=== PATIENT | female | born 1945 | race Hispanic/Latino ===

== ENCOUNTER → 2023-12-18 10:44 | Outpatient (REF) | payer OTHER, SELFPAY | LOC: HWRCS 10:44 | PROVIDERS: ATTENDING PHYSICIAN Internal Medicine; FAMILY PHYSICIAN Family Medicine | DX: R01.1 Cardiac murmur, unspecified (principal) | CPT/HCPCS: 93306 ==

== ENCOUNTER 2024-03-14 09:05 | Day surgery (SDC) | payer OTHER, SELFPAY ==
[2024-03-14] VITALS (10 sets, daily range): BP systolic 94–125; BP diastolic 56–78; BMI 24.8
[2024-03-14 10:13] LABS: Glucose - Point of Care 160 mg/dl (70-99)
--- NOTE | 2024-03-14 12:34 | ITS.CL.IMPLP ---
[facility] - Implant Loop
Implant Loop
Procedure Report:
Date of Procedure: March 14, 2024.
Procedure: Insertable Loop Recorder Explant.
Indication: Loop at the end of service.
Performing physician: Rudy Lazo MD, [facility].
Explant: [employer]; [employer], Model# [id number]; Serial# [id number] (implanted 01/23/2022).
Technique: A time out was performed per protocol. The patient was prepped and draped in the usual fashion. Anesthesia was administered by the anesthesia staff. Local anesthetic was applied to the left prepectoral subcutaneous tissue. An incision
was made over the scar. Dissection was carried to the capsule. The capsule was entered. The old device was explanted. The pocket appeared normal. Hemostasis was excellent. The pocket was irrigated with saline. The incision was closed with 4-0
Monocryl suture. The skin was closed with steri-strips. There was no blood loss. There were no complications. No fluoroscopy was used.
Conclusion: Uncomplicated insertable loop explantation.
Recommendation: Routine incision care.
cc: Bijan Pace MD and Skyla Goins MD.
== END 2024-03-14 13:01 | disposition home or self-care (01) ==
LOC: CATH 09:05
PROVIDERS: ATTENDING PHYSICIAN Internal Medicine Cardiovascular Disease; FAMILY PHYSICIAN Family Medicine; OTHER PHYSICIAN Internal Medicine
DX: Z09 Encounter for follow-up examination after completed treatment for conditions other than malignant neoplasm (principal); R55 Syncope and collapse; E11.9 Type 2 diabetes mellitus without complications; Z87.891 Personal history of nicotine dependence; Z79.84 Long term (current) use of oral hypoglycemic drugs
CPT/HCPCS: 33286; 82962

== ENCOUNTER 2024-05-11 10:51 | Emergency (ER) | payer OTHER, SELFPAY ==
[2024-05-11 10:53] VITALS: BP 146/87
[2024-05-11 11:05] LABS: Glucose - Point of Care 299 mg/dl (70-99)
--- NOTE | 2024-05-11 11:46 | ED.GENMED ---
History of Present Illness
<Kathleen Hassan PA-C - Last Filed: 05/11/24 20:32>
General
Chief Complaint: Blood Pressure Problem
Source: patient
Exam Limitations: none
Time Seen by Provider: 05/11/24 11:22
Nursing documentation reviewed up to this point in time: agreed with
History of Present Illness
History of Present Illness:
Patient is a 78-year-old female with history of CHF, hyperlipidemia, type 2 diabetes, hypertension presenting to the emergency department with multiple complaints. Patient states that she has felt generally unwell over the past few days. She has
had high blood pressure readings at home as high as 180/113. She also notes elevated glucose levels. She is undergoing some medication changes as she recently came off of metformin and started a new insulin medication. Patient states this morning
she was driving to [employer], a store that she visits frequently, however was having difficulties navigating. She kept passing the location of the store. s
She also notes some dysuria and lower abdominal for which she has been treated for frequent UTIs. She is following with a urogynecologist and plan for procedure in the next few weeks for a 'low-lying bladder '. No fevers, nausea/vomiting
Patient denies any severe headache, double vision, ataxia, dysarthria. Patient denies any numbness/tingling in lower extremities or weakness.
Past History
<Kathleen Hassan PA-C - Last Filed: 05/11/24 20:32>
Past History
ED Past Medical History: GERD and Hypercholesterolemia
ED Past Surgical History: Gynecological (Hysterectomy with One Oophorectomy) and Orthopedic
Social History
Tobacco: Former smoker
Alcohol: None
Personal:
Living: with family
Review of Systems
<Kathleen Hassan PA-C - Last Filed: 05/11/24 20:32>
Review of Systems
Allergies reviewed?: Yes
All Other Systems: ROS reviewed and negative except as documented in HPI and ROS
Phy Exam
<Kathleen Hassan PA-C - Last Filed: 05/11/24 20:32>
Physical Exam
Physical Exam:
Vitals: Hypertensive, otherwise vital signs stable. Afebrile
General: Patient is well appearing, no acute distress. Nontoxic appearing
Skin: Warm and dry, no rashes or lesions
Head: Normocephalic, atraumatic
Eyes: Sclera nonicteric. Pupils equal round and reactive to light bilaterally. EOMs intact. Visual muller intact. No nystagmus.
Throat: Protecting airway
Neck: Normal ROM, no cervical spine tenderness, no meningismus
Cardiac: Regular rate and rhythm, no murmurs.
Pulm: Normal respiratory effort, no wheezes, rales, rhonchi heard on exam.
Abdomen: Abdomen soft no abdominal tenderness.
Extremities: No evidence of cyanosis or edema. Strength 5 out of 5 in upper and lower extremities. Sensation fully intact.
Neuro: AAOx3. CN II-XII intact. No focal neurologic deficits. No facial asymmetry. Fluid speech. Normal finger-nose.
Psychiatric: Normal affect.
Scores
<Kathleen Hassan PA-C - Last Filed: 05/11/24 20:32>
NIH Stroke Score
Level of Consciousness: 0 - Alert
LOC Questions: 0-Answers both correctly
LOC Commands: 0-Performs both correctly
Best Horizontal Gaze: 0-Normal
Visual Muller: 0=Normal, no visual loss
Facial Palsy: 0=Normal, symmetrical
Motor - Right Arm: 0=No drift 10 seconds
Motor - Left Arm: 0=No drift 10 seconds
Motor - Right Le-No drift 5 seconds
Motor - Left Le-No drift 5 seconds
Limb Ataxia: 0-Absent
Sensation: 0-Normal
Best Language: 0-No aphasia
Dysarthria: 0-Normal
Extinction and Inattention: 0-No abnormality
Total Score:: 0
Course
<Kathleen Hassan PA-C - Last Filed: 05/11/24 20:32>
Orders/Labs/Results
Orders:
Orders
05/11/24 10:56
EKG [Electrocardiogram (*1)] Urgent
Reason for Study: Chest Pain
EKG- Treatment ONCE
05/11/24 11:47
CT Head W/o Iv Contrast Urgent
Comment:
Reason For Exam: HTN, vision changes, AMS
05/11/24 12:02
Urinalysis Reflex To Culture Urgent
Date Specimen was Collected: 05/11/24
Time Specimen was Collected: 12:00
Urine Microscopic Reflex Cult Urgent
Urine Culture Urgent
CARMELA Source: U
Specimen Description:
Date Specimen was Collected: 05/11/24
Time Specimen was Collected: 12:00
05/11/24 13:52
CMP [Comprehensive Metabolic Panel] Urgent
Complete Blood Count/With Diff Urgent
05/11/24 14:36
CefTRIAXone [Rocephin] 1,000 mg IV NOW STA
Abnormal Lab Results
05/11/24 05/11/24 05/11/24
11:03 12:02 13:52
Absolute Monos (auto) 0.9 H 10^3/uL
(0.1-0.6)
BUN 18 H mg/dl
(7-17)
Glucose 235 H mg/dl
(70-99)
AST 41 H U/L
(14-36)
ALT 50 H U/L
(0-35)
Urine Ketones 1+ A
(Negative)
Ur Occult Blood Reflex 1+ A
(Negative)
Urine Nitrite (Reflex) Positive A
(Negative)
Leukocyte Esterase Rfl 1+ A
(Negative)
Urine RBC 3-6 A /HPF
(0-2)
Urine WBC (Reflex) 30-40 A /HPF
(0-5)
Urine Bacteria (Reflex) Many A
(Negative)
Urine Glucose 3+ A
(Negative)
POC Glucose 299 H mg/dl
(70-99)
05/11/24 13:52
05/11/24 13:52
Vital Signs
Initial and Last Documented VS:
Initial Vital Signs
Temp Pulse Resp BP Pulse Ox
98.4 F 98 18 146/87 98
05/11/24 10:53 05/11/24 10:53 05/11/24 10:53 05/11/24 10:53 05/11/24 10:53
Last Documented Vital Signs
Temp Pulse Resp BP Pulse Ox
98.2 F 98 18 146/87 98
05/11/24 16:15 05/11/24 10:53 05/11/24 10:53 05/11/24 10:53 05/11/24 10:53
<Everardo Jacobs, DO - Last Filed: 05/11/24 15:07>
Orders/Labs/Results
Orders:
Orders
05/11/24 10:56
EKG [Electrocardiogram (*1)] Urgent
Reason for Study: Chest Pain
EKG- Treatment ONCE
05/11/24 11:47
CT Head W/o Iv Contrast Urgent
Comment:
Reason For Exam: HTN, vision changes, AMS
05/11/24 12:02
Urinalysis Reflex To Culture Urgent
Date Specimen was Collected: 05/11/24
Time Specimen was Collected: 12:00
Urine Microscopic Reflex Cult Urgent
Urine Culture Urgent
CARMELA Source: U
Specimen Description:
Date Specimen was Collected: 05/11/24
Time Specimen was Collected: 12:00
05/11/24 13:52
CMP [Comprehensive Metabolic Panel] Urgent
Complete Blood Count/With Diff Urgent
05/11/24 14:36
CefTRIAXone [Rocephin] 1,000 mg IV NOW STA
Abnormal Lab Results
05/11/24 05/11/24 05/11/24
11:03 12:02 13:52
Absolute Monos (auto) 0.9 H 10^3/uL
(0.1-0.6)
BUN 18 H mg/dl
(7-17)
Glucose 235 H mg/dl
(70-99)
AST 41 H U/L
(14-36)
ALT 50 H U/L
(0-35)
Urine Ketones 1+ A
(Negative)
Ur Occult Blood Reflex 1+ A
(Negative)
Urine Nitrite (Reflex) Positive A
(Negative)
Leukocyte Esterase Rfl 1+ A
(Negative)
Urine RBC 3-6 A /HPF
(0-2)
Urine WBC (Reflex) 30-40 A /HPF
(0-5)
Urine Bacteria (Reflex) Many A
(Negative)
Urine Glucose 3+ A
(Negative)
POC Glucose 299 H mg/dl
(70-99)
05/11/24 13:52
05/11/24 13:52
Vital Signs
Initial and Last Documented VS:
Initial Vital Signs
Temp Pulse Resp BP Pulse Ox
98.4 F 98 18 146/87 98
05/11/24 10:53 05/11/24 10:53 05/11/24 10:53 05/11/24 10:53 05/11/24 10:53
Last Documented Vital Signs
Temp Pulse Resp BP Pulse Ox
98.2 F 98 18 146/87 98
05/11/24 16:15 05/11/24 10:53 05/11/24 10:53 05/11/24 10:53 05/11/24 10:53
<Kathleen Hassan PA-C - Last Filed: 05/11/24 20:32>
MDM/Problems Addressed
Differential Diagnosis Includes:
Not limited to: Hypertensive urgency, hypertensive emergency, acute hyperglycemia, UTI, electrolyte abnormality CVA, etc.
MDM/Problems Addressed:
78-year-old female presenting with high blood pressure/high blood sugar readings at home. Patient felt slightly confused today prompting visit. No severe headache or neck pain. No chest pain or shortness of breath. No severe back pain. No
double vision. No numbness/tingling or weakness in lower extremities. Patient hypertensive on arrival, otherwise stable vital signs. Physical exam as above. Patient is well-appearing, no apparent distress. Heart regular rate and rhythm. Lungs
clear bilaterally. No neurologic deficits noted on exam. Patient has normal cerebellar exam. She has fluid speech and steady gait. Overall�low suspicion for central process including CVA. She is without any neurologic deficits. NIH of 0. She
does have a history of chronic UTIs. Will obtain lab work, urinalysis. EKG without acute ischemic changes.
Update: Head CT without any acute abnormalities. Labs reviewed. Patient is acutely hyperglycemic. She is currently undergoing some changes to her insulin regimen within with her door liner helper. Urine appears infected, positive for nitrate,
30-40 WBCs and many bacteria. Overall�suspect likely symptomatic UTI. Also may be contributing to hyperglycemia. BP of 146/87�no indication to emergently lower. Do not suspect CVA or other central process. Patient does have history of somewhat
chronic UTIs and has been on antibiotics recently. Will give dose of Rocephin IV in emergency department discharged on Keflex. Close return precaution discussed. Case seen with attending physician.
Chronic conditions affecting care:
Hypertension, type 2 diabetes
Acute Exacerbation and/or Progression of Chronic Illness:
Acutely hypertensive, acutely hyperglycemic
<Kathleen Hassan PA-C - Last Filed: 05/11/24 20:32>
*Radiology
Radiology exam reviewed: radiology read reviewed
*Pulse Oximetry
Patient hypoxic: no
*EKG
Interpreted by ED Provider?: Yes
Interpretation: normal
Comparison EKG: no changes
Heart Rate: 93
Rate: normal
Rhythm: sinus
[place]: normal axis
Interval: normal QT interval
QRS Pattern: normal QRS
Ischemia: no ischemia
*Law Secretary Interpretation
Rate: Law Secretary- N/A
*Critical Care Note
Total Time (30-74mins, 75-104mins- exclusive of procedures): Not Applicable
ED Attending Note
<Kathleen Hassan PA-C - Last Filed: 05/11/24 20:32>
-
Portions of this chart may have been created with voice recognition software.� Occasional wrong word or��sound alike� substitutions may have occurred due to the inherent limitations of voice recognition software.
<Everardo Jacobs DO - Last Filed: 05/11/24 15:07>
ED Attending Note
Patient seen and examined by attending physician: Yes
I performed a history and physical exam of patient and discussed management with resident, I reviewed resident's note and agree with documented findings and plan of care.: Yes
ED Attending Note:
I have reviewed and agree with history and treatment plan by Kathleen Boogie. My exam reveals no neurologic deficits. Suspect symptomatic UTI. Doubt CVA. Blurry vision is chronic. Treat with Rocephin and discharge on Keflex.
Discharge Plan
Departure
Patient Disposition: Home (Routine Discharge)
Date of Disposition: 05/11/24
Time of Disposition: 14:50
Patient with high blood pressure during this ER visit?: Yes
Condition: Good
Covid-19: Not Applicable
Discharge Problem:
Acute UTI, Acute hyperglycemia
Instructions: High Blood Pressure (DC), Urinary tract infection in adults - ED discharge instructions, High blood sugar in adults - ED discharge instructions, BLOOD PRESSURE
Prescriptions:
New
cephalexin 500 mg capsule
500 mg PO BID 7 Days Qty: 14 0RF
No Action
Vitamin B Complex/Folic Acid
1 tab PO DAILY
acetaminophen [Tylenol Arthritis Pain] 650 MG tablet extended release
650 mg PO PRN PRN (Reason: pain)
biotin 2,500 MCG capsule
2,500 mcg PO DAILY
Tears Eye Drops
1 drp BOTH EYES BID
Michela Fusion Woman's
1 tab PO DAILY
cholecalciferol (vitamin D3) [Vitamin D3] 1,000 UNIT capsule
1 units PO DAILY
atorvastatin 80 mg Tablet
80 mg PO DAILY
venlafaxine 150 mg Capsule,Extended Release 24hr
150 mg PO DAILY
diltiazem HCl 120 mg Tablet
120 mg PO DAILY
metformin 1,000 mg Tablet
1,000 mg PO BID
ibuprofen [Advil] 200 mg Tablet
200 mg PO Q6H PRN (Reason: rt shoulder pain)
zolpidem [Ambien] 5 mg Tablet
5 mg PO HS PRN (Reason: insomnia)
glipizide 5 mg Tablet
5 mg PO DAILY
esomeprazole magnesium [Nexium] 20 mg Capsule,Delayed Release(Dr/Ec)
20 mg PO DAILY
ezetimibe 10 mg Tablet
10 mg PO DAILY
omega-3 fatty acids Capsule
1,000 mg PO DAILY
estradiol 4 mcg Insert
4 mcg VAGINAL DAILY PRN (Reason: bladder issue/ itching)
Referrals:
Skyla Goins MD [Family Provider] - Follow up in 5-7 days
Gopi Corrigan MD [Active] - Follow up in 5-7 days
Activity Restrictions/Additional Instructions:
RETURN TO THE EMERGENCY DEPARTMENT WITH ANY FEVERS, SEVERE ABDOMINAL PAIN, INTRACTABLE NAUSEA/VOMITING, PERSISTENTLY ELEVATED BLOOD PRESSURE, WORSENING IN CURRENT SYMPTOMS OR ANY OTHER CONCERNS
-As discussed�you were found to have a UTI while in the emergency department. If you did receive 1 dose of IV antibiotics. A prescription has been sent for oral antibiotics you to take for the next week. You should begin these tomorrow.
-Your blood sugar was elevated in the emergency department. You should follow-up closely with your door liner helper and continue to take your insulin as prescribed. Eat a balanced diet. Stay well-hydrated.
-Follow-up with your urologist, door liner helper, and primary care for further evaluation/management and to ensure symptoms are improving
Monitor your symptoms closely and return to the emergency department any acute worsening/new symptoms or any other .concerns
Interventions
Interventions:
*Risk Screen - Suicide Last Done: 05/11/24 10:53
*General Assessment Last Done: 05/11/24 10:53
*Neglect/Abuse Screening Last Done: 05/11/24 13:00
ED- Fall Risk Assessment Last Done: 05/11/24 13:00
*ED COVID-19 Vaccine History Last Done: 05/11/24 10:53
*Nursing Disposition Last Done: 05/11/24 16:15
ED- Cardiac Assessment Last Done: 05/11/24 13:00
ED- Neurological Assessment Last Done: 05/11/24 13:00
ED- Pulmonary Assessment Last Done: 05/11/24 13:00
Discharge Date and Time
Discharge Date/Time: 05/11/24 16:15
Print Language: FRENCH
[2024-05-11 11:59] VITALS: BMI 27.0
[2024-05-11 12:09] LABS: Urine Albumin Trace (Neg - Trace); Urine Bilirubin Negative (Negative); Urine Character Slightly Cloudy (Clear); Urine Color Yellow; Urine Glucose 3+ (Negative); Urine Ketone 1+ (Negative); Urine Leukocyte 1+ (Negative); Urine Nitrite Positive (Negative); Urine Occult Blood 1+ (Negative); Urine Urobilinogen Negative (Neg - 1+)
[2024-05-11 12:33] LABS: Urine Squamous Cell 16-20 /LPF (Few)
[2024-05-11 12:34] LABS: Urine White Cell 30-40 /HPF (0-5)
[2024-05-11 12:35] LABS: Urine Bacteria Many (Negative)
[2024-05-11 13:59] LABS: % Basophils 0.3 % (0-2); % Eosinophils 0.6 % (0-6); % Immature Granulocytes 0.3 % (0-0.5); % Lymphocytes 35.5 % (20.5-51.1); % Neutrophils 54.3 % (42.2-75.2); Absolute Eosinophils 0.1 10^3/uL (0-0.7); Absolute Lymphocytes 3.3 10^3/uL (1.2-3.4); Absolute Monocytes 0.9 10^3/uL (0.1-0.6); Absolute Neutrophils 5.1 10^3/uL (1.4-6.5); Hematocrit 41.8 % (37.0-47.0); Hemoglobin 14.2 g/dL (12.0-16.0); Mean Corpuscular Hgb 29.8 pg (27.0-31.0); Mean Corpuscular Volume 87.8 fL (81.0-99.0); Mean Platelet Volume 9.5 fL (7.4-10.4); Nucleated Red Blood Cells % 0 %; Platelet Count 260 10^3/uL (130-400); Red Blood Cell Count 4.76 10^6/uL (4.20-5.40); White Blood Cell Count 9.4 10^3/uL (4.8-10.8)
[2024-05-11 14:15] LABS: ALT (SGPT) 50 U/L (0-35); AST (SGOT) 41 U/L (14-36); Albumin 4.4 g/dl (3.5-5.0); Alkaline Phosphatase 69 U/L (38-126); Blood Urea Nitrogen 18 mg/dl (7-17); Calcium 9.5 mg/dl (8.4-10.2); Carbon Dioxide 26 mmol/L (22-30); Chloride 99 mmol/L (98-107); Estimated Creatinine Clearance 58 ml/min; Glucose 235 mg/dl (70-99); Potassium 3.9 mmol/L (3.5-5.1); Sodium 136 mmol/L (135-145); Total Bilirubin 0.5 mg/dl (0.2-1.3); Total Protein 7.3 g/dl (6.3-8.2); eGFR > 60.00
[2024-05-11] MEDS: ROCEPHIN 1000 MG IV (15:11)
== END 2024-05-11 16:15 | disposition home or self-care (01) ==
LOC: EMR 10:51
PROVIDERS: Physician Assistant; EMERGENCY PHYSICIAN Emergency Medicine; FAMILY PHYSICIAN Family Medicine
DX: N39.0 Urinary tract infection, site not specified (principal); E11.65 Type 2 diabetes mellitus with hyperglycemia; I50.9 Heart failure, unspecified; E78.00 Pure hypercholesterolemia, unspecified; I11.0 Hypertensive heart disease with heart failure; Z87.440 Personal history of urinary (tract) infections; Z87.891 Personal history of nicotine dependence
CPT/HCPCS: 99285; 96374; 70450; 80053; 81003; 81015; 82962; 85025; 87077; 87086; 87186; 93005

== ENCOUNTER → 2024-07-23 09:58 | Outpatient (REF) | payer OTHER, SELFPAY | LOC: HWRAD 09:58 | PROVIDERS: ATTENDING PHYSICIAN Internal Medicine Endocrinology, Diabetes & Metabolism; FAMILY PHYSICIAN Physical Medicine & Rehabilitation | DX: M81.0 Age-related osteoporosis without current pathological fracture (principal) | CPT/HCPCS: 77080 ==

== ENCOUNTER 2024-08-21 13:24 | Emergency (ER) | payer OTHER, SELFPAY ==
[2024-08-21 13:40] VITALS: BP 112/75
[2024-08-21 14:03] LABS: % Basophils 0.1 % (0-2); % Eosinophils 1.2 % (0-6); % Immature Granulocytes 0.3 % (0-0.5); % Lymphocytes 28.3 % (20.5-51.1); % Neutrophils 61.1 % (42.2-75.2); Absolute Eosinophils 0.1 10^3/uL (0-0.7); Absolute Lymphocytes 2.2 10^3/uL (1.2-3.4); Absolute Monocytes 0.7 10^3/uL (0.1-0.6); Absolute Neutrophils 4.7 10^3/uL (1.4-6.5); Hematocrit 39.9 % (37.0-47.0); Hemoglobin 13.8 g/dL (12.0-16.0); Mean Corp Hgb Conc. 34.6 g/dL (33.0-37.0); Mean Corpuscular Volume 86.7 fL (81.0-99.0); Mean Platelet Volume 9.5 fL (7.4-10.4); Nucleated Red Blood Cells % 0 %; Platelet Count 230 10^3/uL (130-400); Red Cell Dist. Width 13.3 % (11.5-14.5); White Blood Cell Count 7.7 10^3/uL (4.8-10.8)
[2024-08-21 14:27] LABS: ALT (SGPT) 25 U/L (0-35); AST (SGOT) 23 U/L (14-36); Albumin 4.1 g/dl (3.5-5.0); Alkaline Phosphatase 72 U/L (38-126); Blood Urea Nitrogen 17 mg/dl (7-17); Calcium 10.2 mg/dl (8.4-10.2); Carbon Dioxide 26 mmol/L (22-30); Chloride 104 mmol/L (98-107); Glucose 334 mg/dl (70-99); Potassium 3.9 mmol/L (3.5-5.1); Sodium 141 mmol/L (135-145); Total Bilirubin 0.7 mg/dl (0.2-1.3); Total Protein 6.9 g/dl (6.3-8.2); eGFR > 60.00
[2024-08-21 14:36] LABS: Troponin I < 0.012 ng/ml
[2024-08-21 16:55] VITALS: BP 128/76
[2024-08-21 17:00] VITALS: BP 107/68
[2024-08-21 17:05] VITALS: BMI 26.7
[2024-08-21 19:06] VITALS: BP 121/79
[2024-08-21 20:00] VITALS: BP 116/68
--- NOTE | 2024-08-21 20:23 | ED.GENMED ---
History of Present Illness
General
Chief Complaint: Numbness
Source: patient
Exam Limitations: none
Time Seen by Provider: 08/21/24 17:16
Nursing documentation reviewed up to this point in time: agreed with
History of Present Illness
History of Present Illness:
Patient presents to ED secondary to 2-week history of posterior headache, neck pain, facial swelling, left arm tingling sensation, and intermittent episodes of left eye visual loss. Unfortunately, patient states that she has had the similar
symptoms for a long period of time. Patient has gone through number of tests as an outpatient with her neurologist at [facility], including MRI brain, which have been normal. Her symptoms had improved over the years, as such, she has
not seen her neurologist for over 1 year. Denies fever. Denies dizziness. Denies loss of sensation or weakness. Denies difficulty ambulation. Denies loss of appetite. Denies recent change in medications or diet. In addition, patient with
history of long standing insulin-dependent diabetes, states that her blood sugar has been fluctuating. Patient does follow-up closely with her highway design engineer
Past History
Past History
ED Past Medical History: GERD and Hypercholesterolemia
ED Past Surgical History: Gynecological (Hysterectomy with One Oophorectomy) and Orthopedic
Social History
Tobacco: Former smoker
Alcohol: None
Personal:
Living: with family
Review of Systems
Review of Systems
Allergies reviewed?: Yes
All Other Systems: ROS reviewed and negative except as documented in HPI and ROS
Constitutional: Reports no symptoms
Respiratory: Reports no symptoms
Cardiac: Reports no symptoms
ABD/GI: Reports no symptoms
Musculoskeletal: Reports neck pain
Neurological: Reports headache, numbness and other (Visual changes)
Phy Exam
Physical Exam
Physical Exam:
Physical Exam
General: no apparent distress, not acutely ill. afebrile
Head: nc/at. eomi
Neck: supple. normal range of motion.
Heart: s1/s2 regular rate and rhythm, no murmur.
Lungs: no acute respiratory distress. clear bilaterally
Abdomen: normal bowel sounds. not tender.
Neuro: alert and oriented x 3. no focal neurological deficits. normal speech. normal gait.
Skin: no rash
Psychiatric: well kept. interactive and cooperative
Extremities: no edema. no calf tenderness.
Course
Orders/Labs/Results
Orders:
Orders
08/21/24 13:43
Electrocardiogram (*1) Urgent
Reason for Study: Chest Pain
EKG- Treatment ONCE
08/21/24 13:49
Complete Blood Count/With Diff Urgent
Comprehensive Metabolic Panel Urgent
Troponin I Urgent
08/21/24 18:04
CT Head W/o Iv Contrast Urgent
Comment:
Reason For Exam: left arm tingling and visual loss
08/21/24 20:26
Insulin Aspart [NOVOLOG vial] 8 units SC NOW STA
Abnormal Lab Results
08/21/24 08/21/24
13:49 20:38
Absolute Monos (auto) 0.7 H 10^3/uL
(0.1-0.6)
Glucose 334 H mg/dl
(70-99)
POC Glucose 206 H mg/dl
(70-99)
08/21/24 13:49
08/21/24 13:49
Vital Signs
Initial and Last Documented VS:
Initial Vital Signs
Temp Pulse Resp BP Pulse Ox
98.8 F 104 16 112/75 95
08/21/24 13:40 08/21/24 13:40 08/21/24 13:40 08/21/24 13:40 08/21/24 13:40
Last Documented Vital Signs
Temp Pulse Resp BP Pulse Ox
98.8 F 92 19 116/68 94
08/21/24 13:40 08/21/24 20:30 08/21/24 20:30 08/21/24 20:00 08/21/24 20:30
MDM/Problems Addressed
MDM/Problems Addressed:
Patient with an unremarkable workup in ED, including blood work and CT head. In addition, patient remains afebrile, hemodynamically stable, and neurologically intact, without focal deficit. At this time, patient feels comfortable going home and
will follow-up with her highway design engineer as well as neurologist for reevaluation. Patient given copy of blood work as well as CT head on disc prior to discharge. Advised return to ED with worsening symptoms.
*Critical Care Note
Total Time (30-74mins, 75-104mins- exclusive of procedures): Not Applicable
ED Attending Note
-
Portions of this chart may have been created with voice recognition software.� Occasional wrong word or��sound alike� substitutions may have occurred due to the inherent limitations of voice recognition software.
Discharge Plan
Departure
Patient Disposition: Home (Routine Discharge)
Date of Disposition: 08/21/24
Time of Disposition: 20:25
Patient with high blood pressure during this ER visit?: No
Discharge Problem:
Paresthesia, Hyperglycemia
Instructions: Paresthesia (DC), High blood sugar in adults - ED discharge instructions
Prescriptions:
No Action
Vitamin B Complex/Folic Acid
1 tab PO DAILY
acetaminophen [Tylenol Arthritis Pain] 650 MG tablet extended release
650 mg PO PRN PRN (Reason: pain)
biotin 2,500 MCG capsule
2,500 mcg PO DAILY
Tears Eye Drops
1 drp BOTH EYES BID
Michela [employer] Woman's
1 tab PO DAILY
cholecalciferol (vitamin D3) [Vitamin D3] 1,000 UNIT capsule
1 units PO DAILY
atorvastatin 80 mg Tablet
80 mg PO DAILY
venlafaxine 150 mg Capsule,Extended Release 24hr
150 mg PO DAILY
diltiazem HCl 120 mg Tablet
120 mg PO DAILY
metformin 1,000 mg Tablet
1,000 mg PO BID
ibuprofen [Advil] 200 mg Tablet
200 mg PO Q6H PRN (Reason: rt shoulder pain)
zolpidem [Ambien] 5 mg Tablet
5 mg PO HS PRN (Reason: insomnia)
glipizide 5 mg Tablet
5 mg PO DAILY
esomeprazole magnesium [Nexium] 20 mg Capsule,Delayed Release(Dr/Ec)
20 mg PO DAILY
ezetimibe 10 mg Tablet
10 mg PO DAILY
omega-3 fatty acids Capsule
1,000 mg PO DAILY
estradiol 4 mcg Insert
4 mcg VAGINAL DAILY PRN (Reason: bladder issue/ itching)
cephalexin 500 mg capsule
500 mg PO BID 7 Days Qty: 14 0RF
Referrals:
Buster Ruiz DO [Family Provider] -
Activity Restrictions/Additional Instructions:
As discussed, please follow-up with your highway design engineer and your neurologist for further evaluation and treatment.
Interventions
Interventions:
*Risk Screen - Suicide Last Done: 08/21/24 13:42
*General Assessment Last Done: 08/21/24 17:05
*Neglect/Abuse Screening Last Done: 08/21/24 13:42
*ED- Fall Risk Assessment Last Done: 08/21/24 17:05
*ED COVID-19 Vaccine History Last Done: 08/21/24 17:05
*Nursing Disposition Last Done: 08/21/24 20:45
ED- Neurological Assessment Last Done: 08/21/24 17:07
Discharge Date and Time
Discharge Date/Time: 08/21/24 20:50
Print Language: PERSIAN
[2024-08-21 20:39] LABS: Glucose - Point of Care 206 mg/dl (70-99)
== END 2024-08-21 20:50 | disposition home or self-care (01) ==
LOC: EMR 13:24
PROVIDERS: Emergency Medicine; EMERGENCY PHYSICIAN Emergency Medicine; FAMILY PHYSICIAN Physical Medicine & Rehabilitation
DX: R20.2 Paresthesia of skin (principal); E11.65 Type 2 diabetes mellitus with hyperglycemia; H54.62 Unqualified visual loss, left eye, normal vision right eye; E78.00 Pure hypercholesterolemia, unspecified; Z87.891 Personal history of nicotine dependence; Z79.4 Long term (current) use of insulin; Z90.710 Acquired absence of both cervix and uterus
CPT/HCPCS: 99284; 70450; 80053; 82962; 84484; 85025; 93005

== ENCOUNTER 2024-09-19 19:24 | Inpatient (IN) | payer OTHER, SELFPAY ==
[2024-09-19 14:52] VITALS: BP 127/69
[2024-09-19 15:03] VITALS: BP 99/64
[2024-09-19 15:44] VITALS: BMI 26.3
[2024-09-19 15:51] LABS: Glucose - Point of Care 558 mg/dl (70-99)
[2024-09-19 16:00] VITALS: BP 112/59
[2024-09-19 16:04] LABS: % Basophils 0.5 % (0-2); % Eosinophils 1.7 % (0-6); % Immature Granulocytes 0.3 % (0-0.5); % Lymphocytes 38.2 % (20.5-51.1); % Monocytes 10.3 % (1.7-9.3); Absolute Eosinophils 0.1 10^3/uL (0-0.7); Absolute Lymphocytes 2.3 10^3/uL (1.2-3.4); Absolute Monocytes 0.6 10^3/uL (0.1-0.6); Absolute Neutrophils 2.9 10^3/uL (1.4-6.5); Mean Corp Hgb Conc. 34.2 g/dL (33.0-37.0); Mean Corpuscular Hgb 29.5 pg (27.0-31.0); Mean Corpuscular Volume 86.4 fL (81.0-99.0); Nucleated Red Blood Cells % 0 %; Platelet Count 241 10^3/uL (130-400); Red Cell Dist. Width 13.1 % (11.5-14.5); White Blood Cell Count 5.9 10^3/uL (4.8-10.8)
--- NOTE | 2024-09-19 16:06 | ED.GENMED ---
History of Present Illness
General
Chief Complaint: Blood Sugar Problem
Source: patient
Exam Limitations: none
Time Seen by Provider: 09/19/24 15:22
Nursing documentation reviewed up to this point in time: agreed with
History of Present Illness
History of Present Illness:
79-year-old female presents to the emergency department complaining of high blood sugar, weakness, blurry vision, urinary frequency and dysuria. She also reports chest tightness.
Past History
Past History
ED Past Medical History: GERD and Hypercholesterolemia
ED Past Surgical History: Gynecological (Hysterectomy with One Oophorectomy) and Orthopedic
Social History
Tobacco: Former smoker
Alcohol: None
Personal:
Living: with family
Review of Systems
Review of Systems
Allergies reviewed?: Yes
All Other Systems: Not applicable
Constitutional: Reports no symptoms
EENT: Reports no symptoms
Respiratory: Reports no symptoms
Cardiac: Reports chest pain
ABD/GI: Reports no symptoms
: Reports dysuria and frequency
Musculoskeletal: Reports no symptoms
Skin: Reports no symptoms
Neurological: Reports no symptoms
Endocrine: Reports no symptoms
Hematologic/Lymphatic: Reports no symptoms
Psychiatric: Reports no symptoms
Phy Exam
Physical Exam
Physical Exam:
Physical Exam
General: no apparent distress, not acutely ill
Neck: supple. no meningeal signs. normal posterior pharynx
Heart: s1/s2 regular rate and rhythm, no murmur. equal radial
pulses.
HEENT: Pupils equal round reactive to light, EOMI
Lungs: no acute respiratory distress. clear bilaterally
Abdomen: normal bowel sounds. not tender. no CVAT
Neuro: alert and oriented. no focal neurological deficits cranial nerves II through XII intact
Skin: no rash
Psychiatric: well kept. interactive and cooperative
Extremities: no edema. no calf tenderness. negative homans. good distal pulses
Course
Orders/Labs/Results
Orders:
Orders
09/19/24 Dinner
2000 calorie (17 carb) Diabetic
At Your Request: Limited Participation
Does patient need a safe tray?: No
09/19/24 15:22
Electrocardiogram (*1) Stat
Reason for Study: Other
Other Reason for Exam: Diabetes
Bedside Glucose- Treatment ONCE
EKG- Treatment ONCE
IV Insert/Care/Rem.- Treatment PRN
09/19/24 15:51
B-Hydroxybutyrate Urgent
Complete Blood Count/With Diff Urgent
Comprehensive Metabolic Panel Urgent
09/19/24 16:06
Troponin I Urgent
09/19/24 16:27
Urinalysis Reflex To Culture Urgent
Date Specimen was Collected: 09/19/24
Time Specimen was Collected: 16:16
Urine Microscopic Reflex Cult Urgent
Urine Culture Urgent
CARMELA Source: U
Specimen Description:
Date Specimen was Collected: 09/19/24
Time Specimen was Collected: 16:16
09/19/24 17:55
0.9% Sodium Chloride 1000 ml [Nss] 1,000 ml IV BOLUS
Cefepime HCl [Maxipime] 1,000 mg IV NOW STA
Insulin Human Regular [Novolin R] 6 units IV NOW STA
09/19/24 17:56
Bedside Glucose- Treatment Q1H
IV Insert/Care/Rem.- Treatment PRN
09/19/24 18:40
Admit/Transfer Patient As Directed
Co-Sign Provider:
Level of Care: Inpatient admission
Assign to:: Telemetry
Physician / Group: Htay
Diagnosis: UTI, Uncontrolled DM
Reason for Telemetry: Chest Pain syndromes
Date to Stop Telemetry: 09/21/24
Time to Stop Telemetry: 11:00
Reason for Hospitalization: IVFs, IV abx
Expected length of stay greater than two midnights?: Yes
ELOS- Estimated Length of Stay in days: 3
I certify the patient meets the requirements for IP care: Yes
Sterile Water [Sterile Water For Injection] 10 ml .ROUTE .STK-MED ONE
PRN Pain Medication Management As Directed
May give lesser potent ordered pain med per pt: Yes
preference::
Protocol:: Medication orders for pain may be administered in a
manner that supports deferring to patient preference
when the pt is:
- Requesting an ordered lesser potent pain medication.
Least to most potent pain medications are defined
as: acetaminophen < NSAID < tramadol < opioids
(morphine, oxycodone, hydromorphone).
- Requesting a lesser dose of the same medication IF
ORDERED.
- Requesting a less intrusive route of administration
if both routes are prescribed by the provider (PO <
IV).
09/19/24 18:41
Code Status As Directed
Resuscitation Status: Full Code
09/19/24 18:46
Phenazopyridine HCl [Pyridium] 200 mg PO NOW STA
09/19/24 19:09
PRN Pain Medication Management As Directed
May give lesser potent ordered pain med per pt: Yes
preference::
Protocol:: Medication orders for pain may be administered in a
manner that supports deferring to patient preference
when the pt is:
- Requesting an ordered lesser potent pain medication.
Least to most potent pain medications are defined
as: acetaminophen < NSAID < tramadol < opioids
(morphine, oxycodone, hydromorphone).
- Requesting a lesser dose of the same medication IF
ORDERED.
- Requesting a less intrusive route of administration
if both routes are prescribed by the provider (PO <
IV).
09/19/24 19:50
0.9% Sodium Chloride 1000 ml [Nss] 1,000 ml IV 125 mls/hr
Acetaminophen [Tylenol] 650 mg PO Q4HPRN PRN
Dextrose 50%-Water [Dextrose 50% Syringe] 12.5 grams IV F33DLIR PRN
Glucagon [GlucaGen] 1 mg IM PRN PRN
Olanzapine [Zyprexa] 5 mg PO HSPRN PRN
09/19/24 19:50
Activity As Directed
Activity Level: Out of Bed-Early Mobility
With Assistance
Bedside Glucose Monitoring As Directed
Frequency: AC&HS
Additional Instructions:: Change to q6h if pt on TPN, tube feeding or not eating
I&O [Intake/ Output] As Directed
Frequency: q12h
Vital Signs As Directed
Frequency: Per unit guidelines
DX Deep Vein Thrombosis Video Routine
09/19/24 20:00
Troponin I Q6H
09/19/24 22:00
Insulin Glargine Lantus [Lantus] 30 units Subcutaneous Insulin Syringe [Syringe-Insulin] 0 unit SC HS
09/20/24 02:00
Troponin I Q6H
09/20/24 06:00
Basic Metabolic Panel IN AM
Complete Blood Count/No Diff IN AM
Glycohemoglobin (HgbA1c) IN AM
CefTRIAXone [Rocephin] 1,000 mg IV Q24H
09/20/24 07:30
Insulin Aspart High Resistance [Novolog Flexpen-High Resistance] See Protocol SC AC
Insulin Aspart Pen [Novolog Flexpen] 5 units SC AC
09/20/24 08:00
Atorvastatin [Lipitor] 80 mg PO DAILY
Pantoprazole [Protonix] 40 mg PO DAILY
09/20/24 18:00
Enoxaparin Sodium [Lovenox] 40 mg SC QPM
09/21/24 11:00
DC Protocol for Telemetry ONCE
Abnormal Lab Results
09/19/24 09/19/24 09/19/24
15:50 15:51 16:27
Monocytes % 10.3 H %
(1.7-9.3)
Sodium 134 L mmol/L
(135-145)
Glucose 534 H* mg/dl
(70-99)
Ur Occult Blood Reflex 2+ A
(Negative)
Urine Nitrite (Reflex) Positive A
(Negative)
Leukocyte Esterase Rfl 3+ A
(Negative)
Urine RBC 3-6 A /HPF
(0-2)
Urine WBC (Reflex) >100 A /HPF
(0-5)
Urine Bacteria (Reflex) Many A
(Negative)
Urine Glucose 4+ A
(Negative)
Urine Albumin (Reflex) 2+ A
(Neg - Trace)
POC Glucose 558 H* mg/dl
(70-99)
09/19/24
18:27
Monocytes %
Sodium
Glucose
Ur Occult Blood Reflex
Urine Nitrite (Reflex)
Leukocyte Esterase Rfl
Urine RBC
Urine WBC (Reflex)
Urine Bacteria (Reflex)
Urine Glucose
Urine Albumin (Reflex)
POC Glucose 398 H mg/dl
(70-99)
09/19/24 15:51
09/19/24 15:51
Vital Signs
Initial and Last Documented VS:
Initial Vital Signs
Temp Pulse Resp BP Pulse Ox
98.2 F 82 20 127/69 97
09/19/24 14:52 09/19/24 14:52 09/19/24 14:52 09/19/24 14:52 09/19/24 14:52
Last Documented Vital Signs
Temp Pulse Resp BP Pulse Ox
98.2 F 82 18 104/59 97
09/19/24 20:09 09/19/24 20:09 09/19/24 20:09 09/19/24 20:09 09/19/24 20:09
MDM/Problems Addressed
Differential Diagnosis Includes:
DKA, UTI
MDM/Problems Addressed:
79-year-old female with UTI, hyperglycemia. Admit to hospitalist.
Chronic conditions affecting care: DM
Acute Exacerbation and/or Progression of Chronic Illness: DM
*Pulse Oximetry
Patient hypoxic: no
*EKG
Interpreted by ED Provider?: Yes
EKG Intrepretation Date: 09/19/24
EKG Intrepretation Time: 16:03
Interpretation: normal
Comparison EKG: no changes
Heart Rate: 78
Rate: normal
Rhythm: sinus
[place]: normal axis
Interval: normal interval
QRS Pattern: normal QRS
Ischemia: no ischemia
*Carry Out Clerk And Shelf Stocker Interpretation
Rate: normal
Interpretation: normal
Heart Rate: 75
Rhythm: sinus
*Critical Care Note
Total Time (30-74mins, 75-104mins- exclusive of procedures): Not Applicable
Patient Management
Social determinants of health affecting care: Living situation and Strong social support
Discussion with other providers: Hospitalist
Escalation/DeEscalation of care consider admission/obs:
Admit indicated
ED Attending Note
-
Portions of this chart may have been created with voice recognition software.� Occasional wrong word or��sound alike� substitutions may have occurred due to the inherent limitations of voice recognition software.
Discharge Plan
Departure
Patient Disposition: Admit
Date of Disposition: 09/19/24
Time of Disposition: 17:57
Admit to: Telemetry
Presentation/result/management discussed w/ accepting MD/DO: Hospitalist
Patient with high blood pressure during this ER visit?: No
Condition: Fair
Discharge Problem:
Acute UTI, Diabetes mellitus with hyperglycemia, Chest pain
Interventions
Interventions:
*Risk Screen - Suicide Last Done: 09/19/24 16:43
*General Assessment Last Done: 09/19/24 16:39
*Neglect/Abuse Screening Last Done: 09/19/24 15:47
*ED- Fall Risk Assessment Last Done: 09/19/24 15:47
*ED COVID-19 Vaccine History Last Done: 09/19/24 15:47
*Nursing Disposition Last Done: 09/19/24 19:57
ED- Neurological Assessment Last Done: 09/19/24 19:29
Discharge Date and Time
Discharge Date/Time: 09/19/24 19:58
[2024-09-19 16:33] LABS: ALT (SGPT) 17 U/L (0-35); AST (SGOT) 16 U/L (14-36); Albumin 3.8 g/dl (3.5-5.0); Alkaline Phosphatase 110 U/L (38-126); Blood Urea Nitrogen 13 mg/dl (7-17); Calcium 9.6 mg/dl (8.4-10.2); Carbon Dioxide 28 mmol/L (22-30); Chloride 99 mmol/L (98-107); Estimated Creatinine Clearance 56 ml/min; Glucose 534 mg/dl (70-99); Potassium 4.4 mmol/L (3.5-5.1); Sodium 134 mmol/L (135-145); Total Bilirubin 0.5 mg/dl (0.2-1.3); Total Protein 6.9 g/dl (6.3-8.2); eGFR > 60.00
[2024-09-19 16:37] LABS: Troponin I < 0.012 ng/ml
[2024-09-19 16:38] LABS: B-Hydroxybutyrate 0.14 mmol/L (0.02-0.27)
[2024-09-19 16:49] LABS: Urine Albumin 2+ (Neg - Trace); Urine Bilirubin Negative (Negative); Urine Character Cloudy (Clear); Urine Color Yellow; Urine Glucose 4+ (Negative); Urine Ketone Negative (Negative); Urine Leukocyte 3+ (Negative); Urine Nitrite Positive (Negative); Urine Occult Blood 2+ (Negative); Urine Urobilinogen Negative (Neg - 1+)
[2024-09-19 17:00] VITALS: BP 95/63
[2024-09-19 17:28] LABS: Urine Bacteria Many (Negative); Urine White Cell >100 /HPF (0-5)
[2024-09-19 18:08] VITALS: BP 99/68
--- NOTE | 2024-09-19 18:15 | HPS.HSE ---
Family Physician
-
Family Physician: Buster Ruiz, DO
Chief Complaint
-
Weakness, Blurry Vision, Dysuria and Urinary Frequency
History of Present Illness
Patient is a 79 y/o female past medical history of diabetes mellitus, hypertension, and hyperlipidemia who presets with multiple complaints. Patient report she has been feeling unwell for several months. She reports her sugars have been running
high and despite changes in medications sugars continue to be elevated. She reports fatigue, and generalized weakness. She admits to polydipsia. She is complaining about urinary frequency, urgency and dysuria. She report lower abdominal
discomfort. She denies fevers, sweats or chils.
Medical History
Past Medical History
Past Medical History: Reports Other
Additional Past Medical History:
Diabetes Mellitus, Type II
Essential Hypertension
Hyperlipidemia
Depression
GERD
Past Surgical History: Reports Other
Additional Past Surgical History:
Right Total Shoulder
Hysterectomy, Right Oophorectomy
Bilateral Cataracts
Social History
Tobacco: Smoker (A few cigarettes a week)
Alcohol: None
Personal:
Living: With Family
Family History
Family History: Not pertinent
Allergies / Home Medications
Allergies reflects when Allergies were last updated in [facility].
Home Medications with original date entered in [facility]
Allergy/Medication List:
Allergies
Allergy/AdvReac Type Severity Reaction Status Date / Time
aspirin Allergy Nausea / Verified 09/19/24 14:52
Vomiting
Iodinated Contrast Media Allergy difficulty Verified 09/19/24 14:52
[Iodinated Contrast- Oral breathing,
and IV Dye] dizziness
levofloxacin [From Levaquin] Allergy tired Verified 09/19/24 14:52
oxycodone Allergy Swelling, Verified 09/19/24 14:52
shortness
of breath
Home Medications
atorvastatin 80 mg tablet 80 mg PO DAILY 03/14/24
esomeprazole magnesium 20 mg capsule,delayed release (Nexium) 20 mg PO DAILYPRN PRN acid reflux 03/14/24
glipizide 5 mg tablet 5 mg PO BIDWMEAL 03/14/24
ascorbic acid (vitamin C) 500 mg tablet (Vitamin C) 500 mg PO DAILY 09/19/24
cholecalciferol (vitamin D3) 25 mcg (1,000 unit) tablet 25 mcg PO DAILY 09/19/24
insulin degludec 200 unit/mL (3 mL) subcutaneous pen (Tresiba FlexTouch U-200 insulin) 0 unit SC .SLIDING SCALE DAILY 09/19/24
olanzapine 5 mg tablet 5 mg PO HSPRN PRN sleep 09/19/24
Review of Systems
-
A 12 point ROS was completed and negative except as noted: Yes
Constitutional: Denies Fever or Chills
EENT: Reports Other (Blurry Vision)
Respiratory: Denies Cough or Trouble Breathing
Cardiac: Denies Chest Pain or Palpitations
Abdomen/GI: Denies Nausea, Vomiting or Diarrhea
: Reports See HPI
Endocrine: Reports See HPI
Physical Exam
Vital Signs
Vital Signs
Temp Pulse Resp BP Pulse Ox
97.8 F 81 15 99/68 92
09/19/24 16:05 09/19/24 18:08 09/19/24 18:08 09/19/24 18:08 09/19/24 17:00
Physical Exam
General: Comfortable and Conversant
HEENT: Anicteric and Moist mucous membranes
Respiratory: Clear and Non Labored Respirations
Cardiac: S1/S2 and Regular Rhythm
GI: Soft and Non Tender
Rectal: Deferred by Provider
Musculoskeletal: No Clubbing, No Cyanosis and No Edema
Skin: Warm and Dry
Neuro: Awake, Alert, Oriented and Nonfocal/grossly intact
Psych: Calm
Laboratory Results
-
09/19/24 15:51
09/19/24 15:51
Laboratory Results
Total Bilirubin 0.5 mg/dl (0.2-1.3) 09/19/24 15:51
AST 16 U/L (14-36) 09/19/24 15:51
ALT 17 U/L (0-35) 09/19/24 15:51
Alkaline Phosphatase 110 U/L (38-126) 09/19/24 15:51
Troponin I < 0.012 ng/ml 09/19/24 16:06
Data Reviewed
-
Lab Data: Labs Reviewed by me
Impression/Plan
-
Urinary Tract Infection
-Continue ceftriaxone
-Await urine culture
Uncontrolled Diabetes Mellitus
-Hgb1c 10.7 on Sep 03 2024
-Continue IVFs
-Change Lantus 30 units HS and add Novolog 5 units AC plus high dose coverage
-Stop Glipizide
-Monitor sugars QID
Essential Hypertension
-BP running on the low side
-Continue IVFS
-Monitor blood pressure
Hyperlipidemia
-Continue atorvastatin
Depression / Insomnia
-Continue Olanzapine prn insomnia
GERD
-Continue Protonix
DVT proph: Lovenox
Code Status: Full Code
[2024-09-19] MEDS: NOVOLIN R 6 UNITS IV (18:25)
[2024-09-19 18:28] LABS: Glucose - Point of Care 398 mg/dl (70-99)
[2024-09-19] MEDS: NSS 1000 IV ×2 (18:29→20:52)
--- NOTE | 2024-09-19 18:48 | W.PN.UPDATE ---
Update Note
Progress Note Update
This note serves as an addendum to the H&P by regulatory affairs analyst MILIND Louise ERWIN
HPI
79F Diabetic T2 HX HLD, GERD seen at ER
- eval for poor contrl BG
- reports high blood sugar, weakness, blurry vision, urinary frequency and dysuria.
- reports chest tightness.
Vital Signs
Temp Pulse Resp BP Pulse Ox
97.8 F 81 15 99/68 92
09/19/24 16:05 09/19/24 18:08 09/19/24 18:08 09/19/24 18:08 09/19/24 17:00
PE
Gen: no apparent distress, not toxic
HEENT: normal oropharyn
Neck: supple
Lungs: CTA
Cor: RRR S1 s2
Abdomen: SOsoft benign
COMMAND AND CONTROL SPECIALIST: AAO3
MS: no edema
Psych: normal mood and affect
Laboratory Tests
09/19/24 09/19/24 09/19/24
15:50 15:51 16:27
WBC 5.9
Hgb 13.0
Plt Count 241
Sodium 134 L
Creatinine 0.6
eGFR > 60.00
Urine Nitrite (Reflex) Positive A
Leukocyte Esterase Rfl 3+ A
Urine WBC (Reflex) >100 A
Urine Bacteria (Reflex) Many A
POC Glucose 558 H* Regular insulin 6 unis --> 398
09/19/24
16:06
Troponin I < 0.012
EKG
NORMAL SINUS RHYTHM
NORMAL ECG
WHEN COMPARED WITH ECG OF 21-AUG-2024 13:46,
NO SIGNIFICANT CHANGE WAS FOUND
Confirmed by CURTIS SERRANO MD, YESENIA ([id number]) on 09/19/2024 5:32:46 PM
NO PRIOR hospitalist admission:
ASSESSMENT & PLAN
Symptomatic UTI
05/11/24 UCX POS for Ferreira ABx sen E Coli HX
- First dose of IV CFP was given at ER
- Switch to IV CFTX in place of IV CFP
- IV NS
- f/u UCx
Poorly control DMT2 with neuropathy
Worsening hyperglycemic control due to UTI
Primary Endo: Dr Shields at [facility]
- 09/03/24 A1C 10. 7 on Glipizide BID plus Tresiba
- DC 'd Glipizide and Tresiba
- Agree with Basal/ bolus regime with Lantus 30units HS and aspart 5 units with meals
- add ISS high
- 2000 zachary diet
Chest pressure more on Rt sided
- worse with moment
- NEG first TPNI
- Normal EKG
- Nevertheless at risk ASCVD
- Trend TPNI
- TLM monitor
HLD
c/w Atorvastatin 80mg daily
DVT Px: LMWH
Full code
IP TLM
[2024-09-19] MEDS: MAXIPIME 1000 MG IV (18:55)
[2024-09-19] MEDS: Pyridium 200 MG PO (19:27)
[2024-09-19 20:00] VITALS: BMI 26.3
[2024-09-19 20:09] VITALS: BP 104/59
[2024-09-19 20:19] VITALS: BMI 26.3
[2024-09-19 21:30] LABS: Glucose - Point of Care 227 mg/dl (70-99)
[2024-09-19 21:32] LABS: Troponin I < 0.012 ng/ml
[2024-09-19] MEDS: LANTUS 0.3 UNITS SC (21:54)
[2024-09-19] MEDS: ZYPREXA 5 MG PO (22:03)
[2024-09-20] VITALS (8 sets, daily range): BP systolic 88–113; BP diastolic 40–68; BMI 26.6
[2024-09-20 03:42] LABS: Hematocrit 37.5 % (37.0-47.0); Hemoglobin 12.8 g/dL (12.0-16.0); Mean Corp Hgb Conc. 34.1 g/dL (33.0-37.0); Mean Corpuscular Hgb 29.2 pg (27.0-31.0); Mean Corpuscular Volume 85.6 fL (81.0-99.0); Mean Platelet Volume 9.7 fL (7.4-10.4); Platelet Count 217 10^3/uL (130-400); Red Blood Cell Count 4.38 10^6/uL (4.20-5.40); Red Cell Dist. Width 12.8 % (11.5-14.5); White Blood Cell Count 6.9 10^3/uL (4.8-10.8)
[2024-09-20 04:08] LABS: Blood Urea Nitrogen 10 mg/dl (7-17); Calcium 9.2 mg/dl (8.4-10.2); Carbon Dioxide 25 mmol/L (22-30); Chloride 111 mmol/L (98-107); Estimated Creatinine Clearance 53 ml/min; Glucose 185 mg/dl (70-99); HDL Cholesterol 39 mg/dl; LDL Cholesterol, Calculated 80 mg/dl; Potassium 3.9 mmol/L (3.5-5.1); Sodium 141 mmol/L (135-145); Total Cholesterol 142 mg/dl (50-199); Triglyceride 115 mg/dl (10-149); Very Low Density Lipoprotein 23 mg/dl (0-30); eGFR > 60.00
[2024-09-20 04:18] LABS: Troponin I 0.021 ng/ml
[2024-09-20] MEDS: NSS 1000 IV ×3 (04:55→21:03)
[2024-09-20] MEDS: ROCEPHIN 1000 MG IV (05:47)
[2024-09-20] MEDS: STERILE WATER FOR INJECTION 10 ML IV (05:47)
[2024-09-20 07:55] LABS: Glucose - Point of Care 127 mg/dl (70-99)
[2024-09-20] MEDS: LIPITOR 80 MG PO (09:01)
[2024-09-20] MEDS: NOVOLOG FLEXPEN-HIGH RESISTANCE 1 UNITS SC (09:02)
[2024-09-20] MEDS: PROTONIX 40 MG PO (09:02)
[2024-09-20] MEDS: NOVOLOG FLEXPEN 5 UNITS SC ×3 (09:02→17:41)
[2024-09-20 09:55] LABS: Troponin I < 0.012 ng/ml
[2024-09-20 11:44] LABS: Glucose - Point of Care 152 mg/dl (70-99)
[2024-09-20] MEDS: NOVOLOG FLEXPEN-HIGH RESISTANCE 2 UNITS SC (11:56)
--- NOTE | 2024-09-20 14:01 | W.PN.HOSP.TC ---
Today's Communication/Plan
-
Sugars have improved
Check routine ultrasound of the kidneys and bladder
Await urine culture
Check pricing for NovoLog
Possible discharge tomorrow if stable
Assessment / Plan
Assessment / Plan
79 y/o female Weakness, Blurry Vision, Dysuria and Urinary Frequency
CVS: S1-S2 normal
Chest: CTA B/L
Abdomen: Soft, NT / Bowel sounds present
Extremities: No edema, normal pulses
PARTY PLAN SALES AGENT: Non focal exam
# UTI-continue ceftriaxone and await cultures
Patient states that she gets recurrent UTIs.
She has followed up with Dr. Corrigan and had Botox injections
She is supposedly taking estrogen cream
Check routine ultrasound of the kidneys and bladder with recurrent UTIs and history of nephrolithiasis
# Poorly controlled diabetes with hemoglobin A1c 10.7 on September 03, 2024
Continue IV fluids
Lantus insulin 30 units at night and NovoLog 5 AC plus sliding scale
Glipizide stopped
Accu-Cheks
# Pseudohyponatremia
# Hyperlipidemia-continue atorvastatin
# Depression/insomnia-continue olanzapine
# GERD-continue pantoprazole
# History of nephrolithiasis
# Smoker-cessation counseling
# DVT prophylaxis-continue Lovenox
# Full code
Part of this note was created using voice recognition system. Occasional wrong word or��sound alike� substitutions may have inadvertently occurred due to the inherent limitations of voice recognition software. If noted kindly bring it to my
attention for correction.
Anticipated Discharge: Within 24 hours
Subjective/Interval History
-
Date of Service: September 20, 2024
Objective Data
-
Labs:
Laboratory Results
09/20/24
03:31
WBC 6.9
Hgb 12.8
Hct 37.5
Plt Count 217
Sodium 141
Potassium 3.9
Chloride 111 H
Carbon Dioxide 25
BUN 10
Creatinine 0.5 L
Glucose 185 H
Calcium 9.2
Vital Signs:
Vital Signs
Temp Pulse Resp BP Pulse Ox
97.9 F 78 16 102/62 96
09/20/24 11:34 09/20/24 11:34 09/20/24 11:34 09/20/24 11:34 09/20/24 11:34
I&O
09/19/24 09/20/24 09/21/24
06:59 06:59 06:59
Intake Total 1969 / 1969
Output Total 400 / 400
Balance 1570 / 1570
[2024-09-20 15:00] LABS: Glycohemoglobin (HgbA1c) 11.2 % (4.0-5.6)
[2024-09-20 16:56] LABS: Glucose - Point of Care 209 mg/dl (70-99)
[2024-09-20] MEDS: LOVENOX 40 MG SC (17:41)
[2024-09-20] MEDS: NOVOLOG FLEXPEN-HIGH RESISTANCE 4 UNITS SC (17:41)
[2024-09-20] MEDS: PREMARIN VAGINAL CREAM 1 APPLIC VAG (21:06)
[2024-09-20 21:07] LABS: Glucose - Point of Care 315 mg/dl (70-99)
[2024-09-20] MEDS: LANTUS 0.3 UNITS SC (21:07)
[2024-09-20] MEDS: ZYPREXA 5 MG PO (22:08)
[2024-09-20] MEDS: COLACE 100 MG PO (22:13)
[2024-09-21 03:29] VITALS: BP 116/61
[2024-09-21] MEDS: ROCEPHIN 1000 MG IV (05:03)
[2024-09-21] MEDS: STERILE WATER FOR INJECTION 10 ML IV (05:03)
[2024-09-21 06:00] VITALS: BMI 26.5
[2024-09-21 07:22] LABS: Glucose - Point of Care 114 mg/dl (70-99)
[2024-09-21 07:55] VITALS: BP 119/70
[2024-09-21] MEDS: NOVOLOG FLEXPEN-HIGH RESISTANCE 1 UNITS SC (08:44)
[2024-09-21] MEDS: PROTONIX 40 MG PO (08:44)
[2024-09-21] MEDS: LIPITOR 80 MG PO (08:44)
[2024-09-21] MEDS: NOVOLOG FLEXPEN 5 UNITS SC (08:45)
--- NOTE | 2024-09-21 11:02 | W.PN.HOSP.TC ---
Today's Communication/Plan
-
D Dimer
Increase NovoLog
Await USS
Assessment / Plan
Assessment / Plan
79 y/o female Weakness, Blurry Vision, Dysuria and Urinary Frequency
CVS: S1-S2 normal
Chest: CTA B/L
Abdomen: Soft, NT / Bowel sounds present
Extremities: No edema, normal pulses
MEAT WASHER: Non focal exam
States that she gets the right sided chest discomfort mostly at night for the past 6 months. Comes off-and-on.
# UTI-continue ceftriaxone and await cultures
Patient states that she gets recurrent UTIs.
She has followed up with Dr. Corrigan and had Botox injections
She is supposedly taking estrogen cream
Check routine ultrasound of the kidneys and bladder with recurrent UTIs and history of nephrolithiasis-results pending
# Poorly controlled diabetes with hemoglobin A1c 11.2 on September 03, 2024
Lantus insulin 30 units at night and NovoLog 8 AC plus sliding scale
Glipizide stopped
Accu-Cheks
# Right-sided chest pain/chest discomfort-possibly muscular. Check D-dimer if positive will get a CT with contrast if negative with will get a CT without contrast. Patient has tolerated IV contrast with dye prep in the past per discussion with
[id number]. Agreeable with the plan.
# Pseudohyponatremia
# Hyperlipidemia-continue atorvastatin
# Depression/insomnia-continue olanzapine
# GERD-continue pantoprazole
# History of nephrolithiasis
# Smoker-cessation counseling
# DVT prophylaxis-continue Lovenox
# Full code
Per patient's request I spoke to her [id number] Marianne [phone]. She is a nurse. Discussed about changes in insulin. Hemoglobin A1c. There are things that patient only checks sugars at nighttime and sometimes when she wakes up in the
middle of the night etc. We discussed about changing insulin. I am not sure if patient has Tresiba U100 or U200 at home. She is on Lantus here which will keep using for discharge so she does not get confused with 2 different prescriptions of
Tresiba.
D/W RN
Part of this note was created using voice recognition system. Occasional wrong word or��sound alike� substitutions may have inadvertently occurred due to the inherent limitations of voice recognition software. If noted kindly bring it to my
attention for correction.
Anticipated Discharge: Today
Subjective/Interval History
-
Date of Service: September 21, 2024
Objective Data
-
Vital Signs:
Vital Signs
Temp Pulse Resp BP Pulse Ox
98.4 F 84 16 119/70 98
09/21/24 07:55 09/21/24 07:55 09/21/24 07:55 09/21/24 07:55 09/21/24 07:55
I&O
09/20/24 09/21/24 09/22/24
06:59 06:59 06:59
Intake Total 1969 / 1969 4470 / 4470
Output Total 400 / 400 1700 / 1700
Balance 1570 / 1570 2770 / 2770
--- NOTE | 2024-09-21 11:16 | VATNOTE ---
During routine rounds pt c/o pain at IV site. Swelling and redness noted. IV discontinued and heat applied. Phlebitis teaching given, pt verbalized understanding.
[2024-09-21 11:20] VITALS: BP 120/68
[2024-09-21 11:48] LABS: Glucose - Point of Care 169 mg/dl (70-99)
--- NOTE | 2024-09-21 12:13 | CM ---
Patient with Dx UTI, Poorly controlled diabetes, Right-sided chest pain/chest discomfort. Room air. Receiving IV Abx, SQ Insulin. Per nurse; ambulatory in room.
Met with patient who resides with her in a 2 story house with no SILVESTRE, and first floor bedroom/bath, in [place].
The patient was independent in ADLs and ambulation.
She is active and drives.
The patient has no DME or prior SNF.
Prior [facility].
PCP - Buster uRiz
Pharmacy - [facility]
CM Consult:
Abrams check Insulins
Spoke with pharmacist, [facility];
cost of Lantus Solostar pen is $70 for 50 day supply and cost of Novolog Flexpen is $83.88/month.
Patient okay with cost of meds. She plans on getting [facility] filled at [facility]
Spoke with Dr Dos Santos to confirm patient ok with cost of insulin scripts.
Offered patient VN for for help with diabetic education and she agreed [facility]
Referral to [facility].
Patient says she feels ready for possible d/c later today. IMM completed. Her will provide transport home today.
Plan home possibly today with VN.
[2024-09-21 12:21] LABS: D-Dimer 0.41 ug/mlFEU (0.00-0.50)
[2024-09-21] MEDS: NOVOLOG FLEXPEN 8 UNITS SC ×2 (12:40→17:59)
[2024-09-21] MEDS: NOVOLOG FLEXPEN-HIGH RESISTANCE 2 UNITS SC ×2 (12:41→18:00)
[2024-09-21 17:42] LABS: Glucose - Point of Care 180 mg/dl (70-99)
--- NOTE | 2024-09-21 17:56 | W.PN.UPDATE ---
Update Note
Progress Note Update
Renal Uss noted
CT chest Coronary artery calcifications are present. Please correlate with symptoms of and risk factors for coronary artery disease, with further workup as clinically appropriate.
Mild inferior endplate deformity of the T7 vertebral body, appearance compatible with a small to moderate central Schmorl's node with adjacent inferior endplate sclerosis. A timeframe for this finding is uncertain, and please correlate with any
localized symptoms in the T7 region.
Likely radiculopathic pain.
OP Cards F/U for coronary calcification.
Called [facility] and left a message
Gave pt the results. tp pt
OP Cards F/U discussed.
More than 30 minutes spent in discharge including
Final examination of the patient
Summarizing hospital stay
Instructions for continuing care to all relevant caregivers
Preparation of discharge records, prescriptions, and referral forms
Total time spent (in minutes): 45 min
--- NOTE | 2024-09-21 18:05 | W.DS.TRANS ---
Addendum entered and electronically signed by Leonie Dos Santos MD 09/21/24 18:09:
Dictation- [id number]
Original Note:
DC Summary - River T[facility]
-
Discharge Instructions:
Discharge Diagnosis/Procedures Uncontrolled DM
UTI
High Cholesterol
Depression
T7 Schmorl's node, end plate sclerosis
Coronary artery Calcification
Diet Diabetic, Carb Controlled
Activity As tolerated
Driving Restrictions As prior to admission
Other Services VN
Instructions:
Stand-Alone Forms:
Changes to Home Medications: Yes
Discharge Medications:
DC Medications w/original date entered in [facility]
esomeprazole magnesium 20 mg capsule,delayed release (Nexium) 20 mg PO DAILYPRN PRN acid reflux 03/14/24
olanzapine 5 mg tablet 5 mg PO HSPRN PRN sleep 09/19/24
ascorbic acid (vitamin C) 500 mg tablet (Vitamin C) 500 mg PO DAILY Supplement #0 tabs 09/21/24
atorvastatin 80 mg tablet 80 mg PO DAILY High cholesterol #0 tabs 09/21/24
cefuroxime axetil 500 mg tablet 500 mg PO BID Urinary issue #10 tabs 09/21/24
cholecalciferol (vitamin D3) 25 mcg (1,000 unit) tablet 25 mcg PO DAILY Supplement #0 tabs 09/21/24
conjugated estrogens 0.625 mg/gram vaginal cream (Premarin) 1 applic vaginal HS UTIS #30 grams 09/21/24
insulin aspart U-100 100 unit/mL (3 mL) subcutaneous pen (Novolog FlexPen U-100 Insulin aspart) 8 unit (0.08 mL) SC AC Diabetes #15 mL 09/21/24
insulin glargine 100 unit/mL (3 mL) subcutaneous pen (Lantus Solostar U-100 Insulin) 30 unit (0.3 mL) SC QPM Diabetes #15 mL 09/21/24
Home Medication Changes
lantus, novolog and ceftin new
Pending Results: No
== END 2024-09-21 18:48 | disposition home health service (06) | DRG 638 ==
LOC: 4 EAST ACU 19:24
PROVIDERS: Nurse Practitioner Family; Physician Assistant Medical; ADMITTING PHYSICIAN Internal Medicine; ATTENDING PHYSICIAN Hospitalist; EMERGENCY PHYSICIAN Emergency Medicine; FAMILY PHYSICIAN Family Medicine
DX: E11.65 Type 2 diabetes mellitus with hyperglycemia (principal); N39.0 Urinary tract infection, site not specified; F32.A Depression, unspecified; I25.10 Atherosclerotic heart disease of native coronary artery without angina pectoris; E78.00 Pure hypercholesterolemia, unspecified; K21.9 Gastro-esophageal reflux disease without esophagitis; F17.210 Nicotine dependence, cigarettes, uncomplicated; G47.00 Insomnia, unspecified; I10 Essential (primary) hypertension; E11.40 Type 2 diabetes mellitus with diabetic neuropathy, unspecified; Z90.710 Acquired absence of both cervix and uterus; Z90.721 Acquired absence of ovaries, unilateral; Z88.5 Allergy status to narcotic agent; Z88.6 Allergy status to analgesic agent; Z79.4 Long term (current) use of insulin; Z79.899 Other long term (current) drug therapy
CPT/HCPCS: 71250; 76770; 80048; 80053; 80061; 81003; 81015; 82010; 82962; 83036; 84484; 85025; 85027; 85379; 87077; 87086; 87186; 93005; 94640; 96361; 99285